=== PATIENT | female | born 1935 | race Caucasian/White ===

== ENCOUNTER 2017-02-22 11:18 | Emergency (ER) | payer OTHER ==
[~2017-02-22] VITALS: Ht 167.6 cm; Wt 69.2 kg
[~2017-02-22 11:18] MED LIST: ASPI325T PO; CETI10 PO; ELOC0.1O TOP; GABA600T PO; HYDR10 PO; LEVO100T4 PO; LISI-363 PO; LORTA5 PO; LOVA40TA PO; OMEP20TA39 PO
[2017-02-22 11:24] VITALS: BP 158/65; PULSE 50; RESP 20; TEMP 98.3; O2SAT 92
[2017-02-22] MEDS ORDERED: BOSW5TAB PO (11:52)
[2017-02-22] MEDS ORDERED: AMLO2.5T PO (11:53)
[2017-02-22] MEDS ORDERED: VITA200C3 PO (11:53)
[2017-02-22] MEDS ORDERED: ZINC220C3 PO (11:53)
[2017-02-22] MEDS ORDERED: MAGN500T2 PO (11:53)
[2017-02-22] MEDS ORDERED: OMEGCAP PO (11:53)
[2017-02-22] MEDS ORDERED: ASPI325T PO (11:53)
[2017-02-22] MEDS ORDERED: LEVO100T5 PO (11:53)
[2017-02-22] MEDS ORDERED: GABA600T PO (11:53)
[2017-02-22] MEDS ORDERED: LOVA40TA PO (11:53)
[2017-02-22] MEDS ORDERED: PROP20TA3 PO (11:53)
[2017-02-22] MEDS ORDERED: COQ150CA PO (11:53)
[2017-02-22] MEDS ORDERED: ENAL20TA PO (11:53)
[2017-02-22] MEDS ORDERED: CEPH-460 PO (12:11)
--- NOTE | 2017-02-22 12:12 | PD ---
HPI Chief Complaint: Skin Problem Time Seen by Provider: 11:40 Travel History International Travel<30 days: No Contact w/Intl Traveler<30days: No Traveled to known affect area: No History of Present Illness HPI 81-year-old female presents emergency department for evaluation right lower extremity wound. Patient reports the wound has a yellowish discoloration and tenderness 2 days. The injury occurred approximately 10 days ago when a 10 pound piece of wooden furniture fell onto the right leg causing a skin tear/ abrasion to the right anterior flores. Patient reports that she had mild tenderness and swelling of the lower extremity since. She reports the pain as mild, constant, no exacerbating or alleviating factors, severity 3 out of 10. She became concerned today because she was unable to remove a piece of gauze from the wound surface. She denies fever, chills, nausea, vomiting, chest pain , shortness breath, abdominal pain. PFSH Past Medical History Narrative Medical Significant for hypertension, dyslipidemia, hypothyroidism, adenocarcinoma of the spine in remission since 2004. Cancer: Yes (para spinal mass adenocarcinoma) Cardiovascular Problems: Yes Diabetes: No Endocrine: Yes Genitourinary: No Hepatitis: No Hiatal Hernia: No Hypertension: Yes Immune Disorder: No Medical other: Yes (low blood sugar at times) Musculoskeletal: Yes (arthritis neck and back problems right knee bakers cyst ) Neurologic: No Psychiatric: No Respiratory: Yes Thyroid Disease: Yes ?: Not Past Surgical History Abdominal Surgery: Yes (hernia) Body Medical Devices: low teeth implants Genitourinary Surgery: Yes (uterine cyst removed) Pacemaker: No Other Surgery: Yes Social History Alcohol Use: No Tobacco Use: Yes (1ppd) Substance Use: No Allergies-Medications (Allergen,Severity, Reaction): Coded Allergies: No Known Allergies (Unverified , 02/22/17) Reported Meds & Prescriptions Reported Meds & Active Scripts Active Keflex (Cephalexin) 500 Mg Cap 500 Mg PO Q6H Reported Gabapentin 600 Mg Tab 600 Mg PO DAILY Enalapril (Enalapril Maleate) 20 Mg Tab 20 Mg PO DAILY Propranolol (Propranolol HCl) 20 Mg Tab 20 Mg PO DAILY Lovastatin 40 Mg Tab 40 Mg PO DAILY Levothyroxine (Levothyroxine Sodium) 100 Mcg Tab 100 Mcg PO DAILY Amlodipine (Amlodipine Besylate) 2.5 Mg Tab 2.5 Mg PO DAILY Magnesium Oxide 500 Mg Tab 500 Mg PO DAILY Zinc Sulfate 220 Mg Cap 220 Mg PO DAILY Coq10 (Coenzyme Q10 (Ubidecarenone)) 50 Mg Cap 1 Cap PO DAILY Aspirin 325 Mg Tab 81 Mg PO DAILY [place]-3 Fish Oil/Vitamin (Fish Oil-Cholecalciferol) 1,000-1,000 Mg Cap 1 Cap PO DAILY Vitamin E 200 Unit Cap 200 Units PO DAILY Osteo Bi-Flex One A Day (Voybzdabg-Nivvfldzhfq-Lqwirxz) 1 Tab 1 Tab PO DAILY Review of Systems Except as stated in HPI: all other systems reviewed are Neg Physical Exam Narrative GENERAL: Work, well-appearing elderly female. SKIN: Focused skin assessment warm/dry. 3 x 2 cm wound right anterior flores. The wound has a yellowish colored gauze stuck to the service of the wound. When removed the wound has healthy granulation tissue with a small amount of purulent drainage. No induration, or surrounding cellulitis, or lymphangitis. HEAD: Atraumatic. Normocephalic. EYES: Pupils equal and round. No scleral icterus. No injection or drainage. ENT: No nasal bleeding or discharge. Mucous membranes pink and moist. NECK: Trachea midline. No JVD. CARDIOVASCULAR: Regular rate and rhythm. No murmur appreciated. RESPIRATORY: No accessory muscle use. Clear to auscultation. Breath sounds equal bilaterally. GASTROINTESTINAL: Abdomen soft, non-tender, nondistended. Hepatic and splenic margins not palpable. MUSCULOSKELETAL: No obvious deformities. No clubbing. No cyanosis. Right lower extremity: 3 x 2 cm wound right anterior flores. Mild edema of right ankle , no bony point tenderness. Negative Homans sign. 2+ distal pulses. NEUROLOGICAL: Awake and alert. No obvious cranial nerve deficits. Motor grossly within normal limits. Normal speech. PSYCHIATRIC: Appropriate mood and affect; insight and judgment normal. Data Data Last Documented VS Vital Signs Date Time Temp Pulse Resp B/P Pulse Ox O2 Delivery O2 Flow Rate FiO2 02/22/17 11:24 98.3 50 20 158/65 92 MDM Medical Decision Making Medical Screen Exam Complete: Yes Emergency Medical Condition: Yes Differential Diagnosis Wound infection, abrasion, contusion, peripheral edema Narrative Course 81-year-old female presents emergency department for evaluation of right lower extremity wound sustained 10 days ago. She reports the last 2 days areas become increasingly more painful and she has gauze stuck to the wound from her previous dressing change. She does report some mild right lower extremity swelling since the injury. She has no bony point tenderness. Negative Homans sign. The calf is nontender. She reports the swelling started after the injury occurred. She is ambulatory without difficulty. The gauze was removed from the wound to reveal a 3 x 2 cm abrasion with granulation tissue present and a small amount of purulent drainage there is no induration, surrounding cellulitis, lymphangitis. Patient will be treated for mild wound infection. Instructed to elevate the extremity. And follow-up with her primary care doctor. Diagnosis Primary Impression: Wound infection Additional Impression: Contusion Qualified Code: S80.11XA - Contusion of right lower leg, initial encounter Referrals: Primary Care Physician Additional Instructions: Keep area clean and dry. Change the dressing daily. Follow-up with her primary care doctor for recheck. Turned to the emergency department if he developed new or worsening symptoms such as fever, chills, increasing pain, increasing swelling of the lower extremity. Scripts Cephalexin (Keflex)500 Mg [id number] Mg PO Q6H #28 CAP Prov:Bia Guillory 02/22/17 Disposition: 01 DISCHARGE HOME Condition: Stable Bia Guillory Feb 22, 2017 12:12
== END 2017-02-22 12:24 | disposition home or self-care (01) ==
LOC: PHEFT 11:18
DX: S80.11XA Contusion of right lower leg, initial encounter (principal); W22.8XXA Striking against or struck by other objects, initial encounter; I10 Essential (primary) hypertension; E07.9 Disorder of thyroid, unspecified; E78.5 Hyperlipidemia, unspecified
CPT/HCPCS: 99283

== ENCOUNTER 2017-08-24 14:10 | Inpatient (IN) | payer OTHER, MEDICARE ==
[~2017-08-24] VITALS: Ht 152.4 cm; Wt 62.3 kg
[2017-08-24] VITALS (8 sets, daily range): BP systolic 96–160; BP diastolic 51–71; PULSE 47–55; RESP 18–20; TEMP 97.5–99.6; O2SAT 79–95
[~2017-08-24 14:10] MED LIST changes: +AMLO2.5T PO; +ASPI-183 PO; -ASPI325T PO; +BOSW5TAB PO; +CEPH-460 PO; -CETI10 PO; +COQ150CA PO; -ELOC0.1O TOP; +ENAL20TA PO; -HYDR10 PO; -LEVO100T4 PO; +LEVO100T5 PO; -LISI-363 PO; -LORTA5 PO; +MAGN500T2 PO; +OMEGCAP PO; -OMEP20TA39 PO; +PROP20TA3 PO; +VITA200C3 PO; +ZINC220C3 PO
[2017-08-24] MEDS ORDERED: SODIUM CHLORIDE 0.9% FLUSH 10 ML FLUSH IVF PRN (14:30)
--- NOTE | 2017-08-24 14:32 | PD ---
HPI Chief Complaint: Respiratory Symptoms Time Seen by Provider: 14:27 Travel History International Travel<30 days: No Contact w/Intl Traveler<30days: No Traveled to known affect area: No History of Present Illness HPI 82-year-old female patient with history of COPD, presents to the ER today because she states that she has not been feeling warm for several days, coughing with white phlegm, generally weak, and thinks she had a syncopal episode while in the bathroom yesterday, found herself on the ground. She also complains of left-sided chest pains which have been hurting since her fall yesterday. She denies any vomiting, diarrhea, or other symptoms. She had very slow heart rates and was given atropine by EMS. Modifying Factors: None Associated Signs & Symptoms: Syncopal episode, generally weak, coughing with white phlegm, slow heart rate Risk Factors: Elderly, COPD history PFSH Past Medical History Cancer: Yes (para spinal mass adenocarcinoma) Cardiovascular Problems: Yes Diabetes: No Diminished Hearing: No Endocrine: Yes Genitourinary: No Hepatitis: No Hiatal Hernia: No Hypertension: Yes Immune Disorder: No Medical other: Yes (low blood sugar at times) Musculoskeletal: Yes (arthritis neck and back problems right knee bakers cyst ) Neurologic: No Psychiatric: No Respiratory: Yes Thyroid Disease: Yes ?: Not Past Surgical History Abdominal Surgery: Yes (hernia) Body Medical Devices: low teeth implants Genitourinary Surgery: Yes (uterine cyst removed) Pacemaker: No Other Surgery: Yes Social History Alcohol Use: No Tobacco Use: Yes (1ppd: "quit yesterday"(08/23/17) Substance Use: No Allergies-Medications (Allergen,Severity, Reaction): Coded Allergies: No Known Allergies (Unverified Adverse Reaction, Unknown, 08/24/17) Reported Meds & Prescriptions Reported Meds & Active Scripts Active Reported Gabapentin 600 Mg Tab 600 Mg PO DAILY Enalapril (Enalapril Maleate) 20 Mg Tab 20 Mg PO DAILY Propranolol (Propranolol HCl) 20 Mg Tab 20 Mg PO DAILY Lovastatin 40 Mg Tab 40 Mg PO DAILY Levothyroxine (Levothyroxine Sodium) 100 Mcg Tab 100 Mcg PO DAILY Amlodipine (Amlodipine Besylate) 2.5 Mg Tab 2.5 Mg PO DAILY Magnesium Oxide 500 Mg Tab 500 Mg PO DAILY Zinc Sulfate 220 Mg Cap 220 Mg PO DAILY Coq10 (Coenzyme Q10 (Ubidecarenone)) 50 Mg Cap 1 Cap PO DAILY Aspirin 325 Mg Tab 81 Mg PO DAILY [place]-3 Fish Oil/Vitamin (Fish Oil-Cholecalciferol) 1,000-1,000 Mg Cap 1 Cap PO DAILY Vitamin E 200 Unit Cap 200 Units PO DAILY Osteo Bi-Flex One A Day (Wvwuvzbiq-Eiirjbunqht-Vqcyyam) 1 Tab 1 Tab PO DAILY Review of Systems Except as stated in HPI: all other systems reviewed are Neg Physical Exam Narrative GENERAL: Well-developed elderly white female patient currently in mild distress. Awake and oriented 3. SKIN: Focused skin assessment warm/dry. HEAD: Atraumatic. Normocephalic. EYES: Pupils equal and round. No scleral icterus. No injection or drainage. ENT: No nasal bleeding or discharge. Mucous membranes pink and moist. NECK: Trachea midline. Supple. CARDIOVASCULAR: Regular rate and rhythm. No murmur appreciated. RESPIRATORY: Mild accessory muscle use. Bibasilar rails. Breath sounds equal bilaterally. GASTROINTESTINAL: Abdomen soft, non-tender, nondistended. Hepatic and splenic margins not palpable. MUSCULOSKELETAL: No obvious deformities. No clubbing. No cyanosis. No edema. NEUROLOGICAL: Awake and alert. No obvious cranial nerve deficits. Motor grossly within normal limits. Normal speech. PSYCHIATRIC: Appropriate mood and affect; insight and judgment normal. Data Data Last Documented VS Vital Signs Date Time Temp Pulse Resp B/P (MAP) Pulse Ox O2 Delivery O2 Flow Rate FiO2 08/24/17 15:02 92 Nasal Cannula 2.50 08/24/17 14:18 44 20 08/24/17 14:14 98.7 110/55 (73) Orders Orders Electrocardiogram (08/24/17 14:27) Complete Blood Count With Diff (08/24/17 14:27) Comprehensive Metabolic Panel (08/24/17 14:27) Magnesium (Mg) (08/24/17 14:27) B-Type Natriuretic Peptide (08/24/17 14:27) Ckmb (Isoenzyme) Profile (08/24/17 14:27) Troponin I (08/24/17 14:27) Act Partial Throm Time (Ptt) (08/24/17 14:27) Prothrombin Time / Inr (Pt) (08/24/17 14:27) Chest, Single Ap (08/24/17 14:27) Ct Brain W/O Iv Contrast(Rout) (08/24/17 14:27) Ct Cerv Spine W/O Contrast (08/24/17 14:27) Ecg Monitoring (08/24/17 14:27) Iv Access Insert/Monitor (08/24/17 14:27) Oximetry (08/24/17 14:27) Sodium Chloride 0.9% Flush (Ns Flush) (08/24/17 14:30) CKMB (08/24/17 14:39) CKMB% (08/24/17 14:39) Furosemide Inj (Lasix Inj) (08/24/17 16:30) Admit Order (Ed Use Only) (08/24/17 16:35) Labs Laboratory Tests Test 08/24/17 14:39 White Blood Count 6.8 TH/MM3 Red Blood Count 3.87 MIL/MM3 Hemoglobin 12.6 GM/DL Hematocrit 37.5 % Mean Corpuscular Volume 96.8 FL Mean Corpuscular Hemoglobin 32.4 PG Mean Corpuscular Hemoglobin Concent 33.5 % Red Cell Distribution Width 12.9 % Platelet Count 107 TH/MM3 Mean Platelet Volume 8.7 FL Neutrophils (%) (Auto) 69.5 % Lymphocytes (%) (Auto) 12.5 % Monocytes (%) (Auto) 14.8 % Eosinophils (%) (Auto) 0.5 % Basophils (%) (Auto) 2.7 % Neutrophils # (Auto) 4.7 TH/MM3 Lymphocytes # (Auto) 0.9 TH/MM3 Monocytes # (Auto) 1.0 TH/MM3 Eosinophils # (Auto) 0.0 TH/MM3 Basophils # (Auto) 0.2 TH/MM3 CBC Comment DIFF FINAL Differential Comment Prothrombin Time 11.1 SEC Prothromb Time International Ratio 1.1 RATIO Activated Partial Thromboplast Time 24.0 SEC Blood Urea Nitrogen 34 MG/DL Creatinine 0.90 MG/DL Random Glucose 117 MG/DL Total Protein 6.5 GM/DL Albumin 3.2 GM/DL Calcium Level 8.0 MG/DL Magnesium Level 2.3 MG/DL Alkaline Phosphatase 58 U/L Aspartate Amino Transf (AST/SGOT) 59 U/L Alanine Aminotransferase (ALT/SGPT) 39 U/L Total Bilirubin 0.4 MG/DL Sodium Level 138 MEQ/L Potassium Level 4.9 MEQ/L Chloride Level 99 MEQ/L Carbon Dioxide Level 30.6 MEQ/L Anion Gap 4 MEQ/L Estimat Glomerular Filtration Rate 60 ML/MIN Total Creatine Kinase 249 U/L Creatine Kinase MB 1.1 NG/ML Creatine Kinase MB % 0.4 % Troponin I 0.02 NG/ML B-Type Natriuretic Peptide 659 PG/ML MDM Medical Decision Making Medical Screen Exam Complete: Yes Emergency Medical Condition: Yes Medical Record Reviewed: Yes Interpretation(s) EKG shows sinus bradycardia at a rate of 48 bpm with occasional APC. No signs of acute ST-T changes. Laboratory Tests Test 08/24/17 14:39 Red Blood Count 3.87 MIL/MM3 (4.00-5.30) Platelet Count 107 TH/MM3 (150-450) Monocytes (%) (Auto) 14.8 % (0.0-8.0) Basophils (%) (Auto) 2.7 % (0.0-2.0) Lymphocytes # (Auto) 0.9 TH/MM3 (1.0-4.8) Monocytes # (Auto) 1.0 TH/MM3 (0-0.9) Activated Partial Thromboplast Time 24.0 SEC (24.3-30.1) Blood Urea Nitrogen 34 MG/DL (7-18) Random Glucose 117 MG/DL (74-106) Albumin 3.2 GM/DL (3.4-5.0) Calcium Level 8.0 MG/DL (8.5-10.1) Aspartate Amino Transf (AST/SGOT) 59 U/L (15-37) Anion Gap 4 MEQ/L (5-15) Estimat Glomerular Filtration Rate 60 ML/MIN (>89) Total Creatine Kinase 249 U/L (26-192) B-Type Natriuretic Peptide 659 PG/ML (0-100) Last [address] [id number]/24/[id number] Signed Impressions: Service Date/Time: Thursday, August 24, 2017 14:58 - CONCLUSION: Normal examination. Jesus Oro MD Chest X-Ray [id number] Signed Impressions: Service Date/Time: Thursday, August 24, 2017 14:36 - CONCLUSION: Increased interstitial markings bilaterally suggestive of pulmonary edema. Brandin Hartman MD Cervical Spine CT [id number] Signed Impressions: Service Date/Time: Thursday, August 24, 2017 14:58 - CONCLUSION: 1. Advanced multilevel degenerative spondylosis with loss of cervical lordosis and mild anterolisthesis of C3 on C4 and C4 and C5. There is also widening of the anterior disc space at C2-5. Suspect findings are degenerative in etiology. Consider flexion-extension views if there is concern regarding ligamentous instability. 2. No acute fracture. Camden Mackay MD Differential Diagnosis Shortness of breath, coughing, general weakness, syncope: Dysrhythmias versus pneumonia versus CHF versus COPD exacerbation versus dehydration versus metabolic issues Narrative Course CAT scan of the brain did not show any signs of acute injuries. Chest x-ray and exam is indicative of underlying CHF. Lab work was otherwise unremarkable and cardiac enzymes are negative. EKG shows significant bradycardia which could be causing her symptoms as well. Patient was given Lasix and at this point my plan would be to admit the patient for further treatment. Case was discussed with Dr. Lehman for admission. Patient was initially hypoxic on evaluation but is running in the low 90s on 2 L of oxygen. Diagnosis Primary Impression: Syncope Additional Impressions: CHF (congestive heart failure) Symptomatic bradycardia Admitting Information Admitting Physician Requests: Admit Astrid Zaidi MD Aug 24, 2017 14:32
[2017-08-24 14:47] LABS: AUTOMATED NEUTROPHIL # 4.7 TH/MM3 (1.8-7.7); BASOPHIL # 0.2 TH/MM3 (0-0.2); BASOPHIL % 2.7 % (0.0-2.0); EOSINOPHIL % 0.5 % (0.0-4.0); HEMATOCRIT 37.5 % (35.0-46.0); HEMOGLOBIN 12.6 GM/DL (11.6-15.3); LYMPH % 12.5 % (9.0-44.0); LYMPHOCYTE # 0.9 TH/MM3 (1.0-4.8); MEAN CELL VOLUME 96.8 FL (80.0-100.0); MEAN CORPUSCULAR HEMOGLOBIN 32.4 PG (27.0-34.0); MEAN CORPUSCULAR HGB CONC 33.5 % (32.0-36.0); MEAN PLATELET VOLUME 8.7 FL (7.0-11.0); MONO % 14.8 % (0.0-8.0); NEUT % 69.5 % (16.0-70.0); PLATELET COUNT 107 TH/MM3 (150-450); RED BLOOD COUNT 3.87 MIL/MM3 (4.00-5.30); RED CELL DISTRIBUTION WIDTH 12.9 % (11.6-17.2); WHITE BLOOD COUNT 6.8 TH/MM3 (4.0-11.0)
[2017-08-24 14:59] LABS: INTERNATIONAL NORMALIZED RATIO 1.1 RATIO; PROTHROMBIN TIME - PATIENT 11.1 SEC (9.8-11.6)
[2017-08-24 15:01] LABS: BLOOD UREA NITROGEN 34 MG/DL (7-18); GLOMERULAR FILTRATION RATE 60 ML/MIN (>89); GLUCOSE,RANDOM 117 MG/DL (74-106); SODIUM (NA) 138 MEQ/L (136-145)
[2017-08-24 15:02] LABS: CHLORIDE 99 MEQ/L (98-107)
--- NOTE | 2017-08-24 15:37 | RADRPT ---
EXAM DATE/TIME: 08/24/2017 14:58 [facility] COMPARISON: No previous studies available for comparison. INDICATIONS : Patient had a syncopal episode yesterday, and found herself on the ground. Generalized weakness. RADIATION DOSE: 61.50 CTDIvol (mGy) MEDICAL HISTORY : Hypertension. Chronic obstructive pulmonary disease. Paraspinal adenocarcinoma. SURGICAL HISTORY : None. ENCOUNTER: Initial ACUITY: 2 days PAIN SCALE: 5/10 LOCATION: cranial TECHNIQUE: Multiple contiguous axial images were obtained of the head. Using automated exposure control and adj ustment of the mA and/or kV according to patient size, radiation dose was kept as low as reasonably a chievable to obtain optimal diagnostic quality images. DICOM format image data is available electro nically for review and comparison. FINDINGS: CEREBRUM: The ventricles are normal for age. No evidence of midline shift, mass lesion, hemorrhage or acute in farction. No extra-axial fluid collections are seen. POSTERIOR FOSSA: The cerebellum and brainstem are intact. The 4th ventricle is midline. The cerebellopontine angle i s unremarkable. EXTRACRANIAL: The visualized portion of the orbits is intact. SKULL: The calvaria is intact. No evidence of skull fracture. CONCLUSION: Normal examination. Jesus Oro MD on August 24, 2017 at 15:33 Board Certified Radiologist. This report was verified electronically.
[2017-08-24 15:39] LABS: BICARBONATE 30.6 MEQ/L (21.0-32.0); MAGNESIUM 2.3 MG/DL (1.5-2.5)
[2017-08-24 15:40] LABS: ALBUMIN 3.2 GM/DL (3.4-5.0)
[2017-08-24 15:42] LABS: AST (GOT) 59 U/L (15-37)
[2017-08-24 15:43] LABS: ALT (GPT) 39 U/L (10-53)
[2017-08-24 15:44] LABS: TOTAL BILIRUBIN ADULT 0.4 MG/DL (0.2-1.0); TOTAL PROTEIN 6.5 GM/DL (6.4-8.2)
[2017-08-24 15:45] LABS: ALKALINE PHOSPHATASE 58 U/L (45-117)
[2017-08-24 15:48] LABS: TROPONIN I 0.02 NG/ML (0.02-0.05)
--- NOTE | 2017-08-24 16:06 | RADRPT ---
EXAM DATE/TIME: 08/24/2017 14:36 [facility] COMPARISON: No previous studies available for comparison. INDICATIONS : Shortness of breath. MEDICAL HISTORY : None. SURGICAL HISTORY : None. ENCOUNTER: Initial ACUITY: 2 days PAIN SCORE: 2/10 LOCATION: chest FINDINGS: A single view of the chest demonstrates the lungs to be symmetrically aerated without evidence of mas s, infiltrate or effusion. There are increased interstitial markings bilaterally. The cardiomediastin al contours are unremarkable. Osseous structures are intact. CONCLUSION: Increased interstitial markings bilaterally suggestive of pulmonary edema. Brandin Hartman MD on August 24, 2017 at 16:04 Board Certified Radiologist. This report was verified electronically.
--- NOTE | 2017-08-24 16:17 | RADRPT ---
EXAM DATE/TIME: 08/24/2017 14:58 [facility] COMPARISON: No previous studies available for comparison. INDICATIONS : Patient had a syncopal episode yesterday, and found herself on the ground. Generalized weakness. RADIATION DOSE: 26.41 CTDIvol (mGy) MEDICAL HISTORY : Hypertension. Chronic obstructive pulmonary disease. Paraspinal adenocarcinoma. SURGICAL HISTORY : None. ENCOUNTER: Initial ACUITY: 2 days PAIN SCALE: 5/10 LOCATION: neck TECHNIQUE: Volumetric scanning of the cervical spine was performed. Multiplanar reconstructions in the sagittal, coronal and oblique axial planes were performed. Using automated exposure control and adjustment o f the mA and/or kV according to patient size, radiation dose was kept as low as reasonably achievable to obtain optimal diagnostic quality images. DICOM format image data is available electronically f or review and comparison. FINDINGS: Vertebral body heights are maintained. Osseous structures are intact without evidence for acute bony fracture. Dens is intact. Loss of cervical lordosis with mild, less than 2 mm anterolisthesis of C3 o n C4 and C4 on C5. There is also widening of the anterior disc space at C2-3, C3-4 and C4-5. There is a normal C1-2 relationship. Facets are normally aligned. There is no significant prevertebral soft t issue hematoma. Advanced multilevel degenerative spondylosis of the cervical spine. Multilevel facet arthropathy. No significant cervical adenopathy or gross mass. The thyroid appears unremarkable. Visu alized lung apices are clear without pneumothorax. Prominent left internal carotid artery calcified p laque. CONCLUSION: 1. Advanced multilevel degenerative spondylosis with loss of cervical lordosis and mild anterolisthes is of C3 on C4 and C4 and C5. There is also widening of the anterior disc space at C2-5. Suspect find ings are degenerative in etiology. Consider flexion-extension views if there is concern regarding lig amentous instability. 2. No acute fracture. Camden Mackay MD on August 24, 2017 at 16:12 Board Certified Radiologist. This report was verified electronically.
[2017-08-24] MEDS ORDERED: FUROSEMIDE 40 MG/4 ML VIAL IV PUSH ONE (16:30)
[2017-08-24] MEDS ORDERED: BISACODYL 10 MG SUPP RECTAL PRN (16:45)
[2017-08-24] MEDS ORDERED: SENNOSIDES 8.6 MG TAB PO PRN (16:45)
[2017-08-24] MEDS ORDERED: NALOXONE HCL 0.4 MG/ML AMP IV PUSH PRN (16:45)
[2017-08-24] MEDS ORDERED: ONDANSETRON HCL 4 MG/2 ML VIAL IVP PRN (16:45)
[2017-08-24] MEDS ORDERED: MAGNESIUM HYDROXIDE SUSP 30 ML CUP PO PRN (16:45)
[2017-08-24] MEDS ORDERED: LACTULOSE SYRUP 20 GM/30 ML CUP PO PRN (16:45)
[2017-08-24] MEDS ORDERED: SODIUM CHLORIDE 0.9% FLUSH 10 ML FLUSH IV FLUSH PRN (16:45)
[2017-08-24] MEDS ORDERED: ACETAMINOPHEN 325 MG TAB PO PRN (16:45)
[2017-08-24] MEDS ORDERED: PILL SPLITTER OTHER PRN (17:30)
--- NOTE | 2017-08-24 17:35 | HHI.HP ---
[facility] Mike Luis MD Admission Diagnosis Symptomatic bradycardia/CHF Diagnoses: (1) Acute exacerbation of CHF (congestive heart failure) Diagnosis: Principal (2) Syncope Diagnosis: Principal Chief Complaint: Syncope Generalized weakness Travel History International Travel<30 Days: No Contact w/Intl Traveler <30 Da: No Traveled to Known Affected Are: No History of Present Illness Written by Jeannine Mirza, acting as scribe for Dr. Huitron on 08/24/17 at 17:27. Ms. Villalobos is an 82-year-old female patient with a known medical history of hypertension, COPD, hypothyroidism, and arthritis who presented to the ED with complaints of generalized weakness, productive cough and a possible syncopal episode. She states she fell in the shower [place] and felt lightheaded prior , loosing her balance. Does admit to hitting her head. States she blacked out for a couple seconds. Does also complain of shortness of breath and some congestion along with productive cough with white/yellow sputum. Admits to subjective fevers and chills and epigastric pain. Denies any associated nausea, vomiting or diaphoresis. PCP is Dr. Luis. Does not follow with a warehouse inventory clerk. States she has poor circulation and bilateral lower extremity edema with plans to see Dr. Wally lindsey [facility], vascular surgeon, later this month. Denies ever having a diagnosis of CHF in the past. At the time of assessment patient is awake and alert and oriented. Denies any chest pain at this time. Breathing comfortably on 2 L NC. Review of Systems Constitutional: COMPLAINS OF: Fever, Chills Eyes: DENIES: Blurred vision, Diplopia Respiratory: COMPLAINS OF: Cough, Sputum production, Shortness of breath Cardiovascular: COMPLAINS OF: Chest pain, DENIES: Palpitations Gastrointestinal: DENIES: Abdominal pain, Bloody stools, Constipation, Diarrhea , Nausea, Vomiting Psychiatric: COMPLAINS OF: Anxiety Except as stated in HPI: all other systems reviewed are Neg Past Family Social History Past Medical History History of para spinal mass adenocarcinoma. Hypertension Arthritis Right knee Siu's cyst COPD Past Surgical History Hernia repair Bottom teeth implants Uterine cyst removal Right knee surgery Cholecystectomy Reported Medications Active Reported Gabapentin 600 Mg Tab 600 Mg PO DAILY Enalapril (Enalapril Maleate) 20 Mg Tab 20 Mg PO DAILY Propranolol (Propranolol HCl) 20 Mg Tab 20 Mg PO DAILY Lovastatin 40 Mg Tab 40 Mg PO DAILY Levothyroxine (Levothyroxine Sodium) 100 Mcg Tab 100 Mcg PO DAILY Amlodipine (Amlodipine Besylate) 2.5 Mg Tab 2.5 Mg PO DAILY Magnesium Oxide 500 Mg Tab 500 Mg PO DAILY Zinc Sulfate 220 Mg Cap 220 Mg PO DAILY Coq10 (Coenzyme Q10 (Ubidecarenone)) 50 Mg Cap 1 Cap PO DAILY Aspirin 325 Mg Tab 81 Mg PO DAILY Orange-3 Fish Oil/Vitamin (Fish Oil-Cholecalciferol) 1,000-1,000 Mg Cap 1 Cap PO DAILY Vitamin E 200 Unit Cap 200 Units PO DAILY Osteo Bi-Flex One A Day (Mnajvdeub-Bylghvbiuvh-Eyxgyub) 1 Tab 1 Tab PO DAILY Allergies: Coded Allergies: No Known Allergies (Unverified Allergy, Unknown, 08/24/17) Active Ordered Medications Current Medications Medications (Trade) Dose Ordered Sig/Lisandra Route Start Time Stop Time Status Last Admin (NS Flush) 2 ml UNSCH PRN IV FLUSH 08/24/17 16:45 (NS Flush) 2 ml BID IV FLUSH 08/24/17 21:00 (Tylenol) 650 mg Q4H PRN PO 08/24/17 16:45 (Zofran Inj) 4 mg Q6H PRN IVP 08/24/17 16:45 (Lovenox Inj) 40 mg Q24H SQ 08/24/17 18:00 (Narcan Inj) 0.4 mg UNSCH PRN IV PUSH 08/24/17 16:45 (Lisa-Colace) 1 tab BID PO 08/24/17 21:00 (Milk Of Magnesia Liq) 30 ml Q12H PRN PO 08/24/17 16:45 (Senokot) 17.2 mg Q12H PRN PO 08/24/17 16:45 (Dulcolax Supp) 10 mg DAILY PRN RECTAL 08/24/17 16:45 (Lactulose Liq) 30 ml DAILY PRN PO 08/24/17 16:45 (Lasix Inj) 40 mg BID@09,18 IV PUSH 08/24/17 18:00 (Norvasc) 2.5 mg DAILY PO 08/25/17 09:00 UNV (Aspirin) 81 mg DAILY PO 08/25/17 09:00 UNV (Vasotec) 20 mg DAILY PO 08/25/17 09:00 UNV (Neurontin) 600 mg DAILY PO 08/25/17 09:00 UNV (Synthroid) 100 mcg DAILY PO 08/25/17 09:00 UNV (Pravachol) 40 mg DAILY PO 08/25/17 09:00 UNV Non-Formulary Medication 500 mg DAILY PO 08/25/17 09:00 UNV Non-Formulary Medication 200 units DAILY PO 08/25/17 09:00 UNV Family History Denies any significant medical history. Social History States she quit smoking yesterday, has smoked 3/4 of pack cigarettes starting at the age of 39. Denies any alcohol use. Denies any illicit drug use. Physical Exam Vital Signs Vital Signs Date Time Temp Pulse Resp B/P (MAP) Pulse Ox O2 Delivery O2 Flow Rate FiO2 08/24/17 17:14 08/24/17 16:50 54 20 96/51 (66) 95 Nasal Cannula 2.50 08/24/17 15:02 92 Nasal Cannula 2.50 08/24/17 14:18 44 20 92 Nasal Cannula 2.50 08/24/17 14:17 20 92 Nasal Cannula 2.50 08/24/17 14:14 98.7 47 20 110/55 (73) 79 Physical Exam GENERAL: This is a well-nourished, well-developed patient, in no apparent distress. SKIN: No rashes, ecchymoses or lesions. Warm and dry. HEAD: Atraumatic. Normocephalic. EYES: Pupils equal round and reactive. Extraocular motions intact. No scleral icterus. No injection or drainage. ENT: Nose without bleeding, purulent drainage or septal hematoma. Airway patent. NECK: Trachea midline. No JVD or lymphadenopathy. Supple. CARDIOVASCULAR: Sinus bradycardia. Without murmurs, gallops, or rubs. RESPIRATORY: Diminished breath sounds throughout. Breath sounds equal bilaterally. No wheezes, rales, or rhonchi. GASTROINTESTINAL: Abdomen soft, non-tender, nondistended. No guarding. MUSCULOSKELETAL: Extremities without clubbing, cyanosis.. No joint tenderness, effusion, or edema noted. Bilateral lower extremity edema, trace. NEUROLOGICAL: Awake and alert. Cranial nerves II through XII intact. Motor and sensory grossly within normal limits. Five out of 5 muscle strength in all muscle groups. Normal speech. Laboratory Laboratory Tests Test 08/24/17 14:39 White Blood Count 6.8 Red Blood Count 3.87 Hemoglobin 12.6 Hematocrit 37.5 Mean Corpuscular Volume 96.8 Mean Corpuscular Hemoglobin 32.4 Mean Corpuscular Hemoglobin Concent 33.5 Red Cell Distribution Width 12.9 Platelet Count 107 Mean Platelet Volume 8.7 Neutrophils (%) (Auto) 69.5 Lymphocytes (%) (Auto) 12.5 Monocytes (%) (Auto) 14.8 Eosinophils (%) (Auto) 0.5 Basophils (%) (Auto) 2.7 Neutrophils # (Auto) 4.7 Lymphocytes # (Auto) 0.9 Monocytes # (Auto) 1.0 Eosinophils # (Auto) 0.0 Basophils # (Auto) 0.2 CBC Comment DIFF FINAL Differential Comment Prothrombin Time 11.1 Prothromb Time International Ratio 1.1 Activated Partial Thromboplast Time 24.0 Blood Urea Nitrogen 34 Creatinine 0.90 Random Glucose 117 Total Protein 6.5 Albumin 3.2 Calcium Level 8.0 Magnesium Level 2.3 Alkaline Phosphatase 58 Aspartate Amino Transf (AST/SGOT) 59 Alanine Aminotransferase (ALT/SGPT) 39 Total Bilirubin 0.4 Sodium Level 138 Potassium Level 4.9 Chloride Level 99 Carbon Dioxide Level 30.6 Anion Gap 4 Estimat Glomerular Filtration Rate 60 Total Creatine Kinase 249 Creatine Kinase MB 1.1 Creatine Kinase MB % 0.4 Troponin I 0.02 B-Type Natriuretic Peptide 659 Result Diagram: 08/24/17143808/24/171438 Imaging Last Impressions Head CT 08/24/171426 Signed Impressions: Service Date/Time: Thursday, August 24, 2017 14:58 - CONCLUSION: Normal examination. Jesus Oro MD Chest X-Ray 08/24/171426 Signed Impressions: Service Date/Time: Thursday, August 24, 2017 14:36 - CONCLUSION: Increased interstitial markings bilaterally suggestive of pulmonary edema. Brandin Hartman MD Cervical Spine CT 08/24/171426 Signed Impressions: Service Date/Time: Thursday, August 24, 2017 14:58 - CONCLUSION: 1. Advanced multilevel degenerative spondylosis with loss of cervical lordosis and mild anterolisthesis of C3 on C4 and C4 and C5. There is also widening of the anterior disc space at C2-5. Suspect findings are degenerative in etiology. Consider flexion-extension views if there is concern regarding ligamentous instability. 2. No acute fracture. Camden Mackay MD Septic Shock Reassessment Septic shock perfusion: reassessment completed Caprini VTE Risk Assessment Caprini VTE Risk Assessment: Mod/High Risk (score >= 2) Caprini Risk Assessment Model Point Value = 1 Point Value = 2 Point Value = 3 Point Value = 5 Age 41-60 Minor surgery BMI > 25 kg/m2 Swollen legs Varicose veins or History of unexplained or recurrent spontaneous Oral contraceptives or hormone replacement Sepsis (< 1 month) Serious lung disease, including pneumonia (< 1 month) Abnormal pulmonary function Acute myocardial infarction Congestive heart failure (< 1 month) History of inflammatory bowel disease Medical patient at bed rest Age 61-74 Arthroscopic surgery Major open surgery (> 45 min) Laparoscopic surgery (> 45 min) Malignancy Confined to bed (> 72 hours) Immobilizing plaster cast Central venous access Age >= 75 History of VTE Family history of VTE Factor V Leiden Prothrombin [id number] Lupus anticoagulant Anticardiolipin antibodies Elevated serum homocysteine Heparin-induced thrombocytopenia Other congenital or acquired thrombophilia Stroke (< 1 month) Elective arthroplasty Hip, pelvis, or leg fracture Acute spinal cord injury (< 1 month) Prophylaxis Regimen Total Risk Factor Score Risk Level Prophylaxis Regimen 0-1 Low Early ambulation 2 Moderate Order ONE of the following: *Sequential Compression Device (SCD) *Heparin 5000 units SQ BID 3-4 Higher Order ONE of the following medications: *Heparin 5000 units SQ TID *Enoxaparin/Lovenox 40 mg SQ daily (WT < 150 kg, CrCl > 30 mL/min) *Enoxaparin/Lovenox 30 mg SQ daily (WT < 150 kg, CrCl > 10-29 mL/min) *Enoxaparin/Lovenox 30 mg SQ BID (WT < 150 kg, CrCl > 30 mL/min) AND/OR *Sequential Compression Device (SCD) 5 or more Highest Order ONE of the following medications: *Heparin 5000 units SQ TID (Preferred with Epidurals) *Enoxaparin/Lovenox 40 mg SQ daily (WT < 150 kg, CrCl > 30 mL/min) *Enoxaparin/Lovenox 30 mg SQ daily (WT < 150 kg, CrCl > 10-29 mL/min) *Enoxaparin/Lovenox 30 mg SQ BID (WT < 150 kg, CrCl > 30 mL/min) AND *Sequential Compression Device (SCD) Assessment and Plan Assessment and Plan This is an 82-year-old female patient with a known medical history of COPD, hypertension, hyperlipidemia and hypothyroidism who presented to the ED status post syncopal episode, generalized weakness, and cough. Symptomatic bradycardia with generalized weakness, fatigue, and post syncopal episode suspect secondary to beta ronni/bradycardia CT head reviewed showing normal examination. Cervical spine CT reviewed showing multilevel degenerative spondylosis. No acute fracture. EKG showing sinus bradycardia. No ST changes to indicate acute ischemia. Continue cardiac telemetry, monitor for arrhythmias. Will ask PT to evaluate and treat. Follow. Will obtain carotid ultrasounds. Follow. Acute exacerbation of CHF, first episode Patient denies any prior diagnosis of heart failure. CXR reviewed showing increased interstitial markings bilaterally suggestive of pulmonary edema. BNP 659 on presentation. Lasix 40 mg IV given in ED. Placed on Lasix 40 mg IV BID. Strict monitoring of intake and output. Will obtain a 2-D ECHO. Follow. Fluid restriction, 1500 ml per day. Supplemental O2 to keep O2 sats >92%. Hypothyroidism: Check TSH. Follow levothyroxine. Hyperlipidemia, chronic: Continue home statin. DVT Prophylaxis: SCDs. Lovenox. This note was transcribed by [employer]OW Boss . I, Dr. Tia Huitron personally performed the history, physical exam, and medical decision making; and confirmed the accuracy of the information in the transcribed note. Authenticated by Dr. Tia Huitron on 08/24/17 at 17:27. Physician Certification 2 Midnight Certification Type: Admission for Inpatient Services Order for Inpatient Services The services are ordered in accordance with Medicare regulations or non- Medicare payer requirements, as applicable. In the case of services not specified as inpatient-only, they are appropriately provided as inpatient services in accordance with the 2-midnight benchmark. Estimated LOS (days): 2 2 days is the estimated time the patient will need to remain in the hospital, assuming treatment plan goals are met and no additional complications. Post-Hospital Plan: Not yet determined Jeannine Mirza Aug 24, 2017 17:35 Tia Huitron MD Aug 24, 2017 18:41
[2017-08-24] MEDS: FUROSEMIDE 40 MG/4 ML VIAL IV PUSH SCH (18:42)
[2017-08-24] MEDS: ENOXAPARIN SODIUM 40 MG/0.4 ML SYRINGE SQ SCH (18:42)
[2017-08-24] MEDS: DOCUSATE SODIUM 50 MG/SENNA 8.6 MG TAB PO SCH (20:13)
[2017-08-24] MEDS: SODIUM CHLORIDE 0.9% FLUSH 10 ML FLUSH IV FLUSH SCH (20:13)
[2017-08-24] MEDS: RESP: ALBUTEROL 2.5 MG/IPRATROPIUM 0.5 MG NEB (PRN) NEB (21:20)
[2017-08-24] MEDS: BENZONATATE 100 MG CAP PO PRN (23:51)
[2017-08-25] VITALS (7 sets, daily range): BP systolic 125–177; BP diastolic 62–88; PULSE 50–80; RESP 18; TEMP 97.9–98.8; O2SAT 89–99
[2017-08-25 06:07] LABS: AUTOMATED NEUTROPHIL # 3.8 TH/MM3 (1.8-7.7); BASOPHIL % 0.1 % (0.0-2.0); EOSINOPHIL % 0.2 % (0.0-4.0); HEMOGLOBIN 11.9 GM/DL (11.6-15.3); LYMPH % 15.9 % (9.0-44.0); LYMPHOCYTE # 0.9 TH/MM3 (1.0-4.8); MEAN CELL VOLUME 97.6 FL (80.0-100.0); MEAN CORPUSCULAR HEMOGLOBIN 31.5 PG (27.0-34.0); MEAN CORPUSCULAR HGB CONC 32.3 % (32.0-36.0); MEAN PLATELET VOLUME 9.6 FL (7.0-11.0); MONO % 13.7 % (0.0-8.0); MONOCYTE # 0.7 TH/MM3 (0-0.9); NEUT % 70.1 % (16.0-70.0); PLATELET COUNT 76 TH/MM3 (150-450); RED BLOOD COUNT 3.79 MIL/MM3 (4.00-5.30); RED CELL DISTRIBUTION WIDTH 12.9 % (11.6-17.2); WHITE BLOOD COUNT 5.4 TH/MM3 (4.0-11.0)
[2017-08-25] MEDS: LEVOTHYROXINE SODIUM 100 MCG TAB PO SCH (06:15)
[2017-08-25] MEDS: ENALAPRIL MALEATE 10 MG TAB PO SCH ×2 (06:16→10:57)
[2017-08-25 06:26] LABS: CALCIUM 8.4 MG/DL (8.5-10.1)
[2017-08-25 06:27] LABS: BICARBONATE 34.3 MEQ/L (21.0-32.0)
[2017-08-25 06:30] LABS: CREATININE 0.92 MG/DL (0.50-1.00)
[2017-08-25] MEDS: RESP: ALBUTEROL 2.5 MG/IPRATROPIUM 0.5 MG NEB (PRN) NEB ×2 (06:32→19:40)
[2017-08-25] MEDS ORDERED: ENALAPRIL MALEATE 10 MG TAB PO SCH ×2 (09:00)
[2017-08-25] MEDS ORDERED: amLODIPine BESYLATE 5 MG TAB PO SCH (09:00)
--- NOTE | 2017-08-25 09:09 | HHI.PR ---
Subjective Remarks Feels weak so shortness of breath however improved since yesterday. Able to sit in the chair seen by physical therapy recommends rehabilitation. No chest pain, palpitations, lightheadedness. Lower extremity edema improved. Eating fairly well nausea vomiting diarrhea or constipation. Objective Vitals Vital Signs Date Time Temp Pulse Resp B/P (MAP) Pulse Ox O2 Delivery O2 Flow Rate FiO2 08/25/17 04:00 97.9 57 18 177/78 (111) 92 08/25/17 00:00 97.9 50 18 136/62 (86) 90 08/24/17 20:00 97.5 50 18 160/69 (99) 91 08/24/17 20:00 55 08/24/17 19:22 94 Nasal Cannula 2.50 08/24/17 17:50 99.6 47 20 156/71 (99) 90 08/24/17 17:14 08/24/17 16:50 54 20 96/51 (66) 95 Nasal Cannula 2.50 08/24/17 16:40 95 Nasal Cannula 2.50 08/24/17 15:02 92 Nasal Cannula 2.50 08/24/17 14:18 44 20 92 Nasal Cannula 2.50 08/24/17 14:17 20 92 Nasal Cannula 2.50 08/24/17 14:14 98.7 47 20 110/55 (73) 79 I/O 08/24/17 08/24/17 08/24/17 08/25/17 08/25/17 08/25/17 07:00 15:00 23:00 07:00 15:00 23:00 Intake Total 240 ml Output Total 1000 ml Balance -760 ml Intake Oral 240 ml Output Urine Total 1000 ml # Voids 2 3 Result Diagram: 08/25/1750908/25/17509 Imaging Last Impressions Head CT 08/24/171426 Signed Impressions: Service Date/Time: Thursday, August 24, 2017 14:58 - CONCLUSION: Normal examination. Jesus Oro MD Chest X-Ray 08/24/171426 Signed Impressions: Service Date/Time: Thursday, August 24, 2017 14:36 - CONCLUSION: Increased interstitial markings bilaterally suggestive of pulmonary edema. Brandin Hartman MD Cervical Spine CT 08/24/171426 Signed Impressions: Service Date/Time: Thursday, August 24, 2017 14:58 - CONCLUSION: 1. Advanced multilevel degenerative spondylosis with loss of cervical lordosis and mild anterolisthesis of C3 on C4 and C4 and C5. There is also widening of the anterior disc space at C2-5. Suspect findings are degenerative in etiology. Consider flexion-extension views if there is concern regarding ligamentous instability. 2. No acute fracture. Camden Mackay MD Objective Remarks GENERAL: This is a well-nourished, well-developed patient, in no apparent distress. CARDIOVASCULAR: Sinus bradycardia. Without murmurs, gallops, or rubs. RESPIRATORY: Diminished breath sounds throughout. Breath sounds equal bilaterally. No wheezes, rales, or rhonchi. GASTROINTESTINAL: Abdomen soft, non-tender, nondistended. No guarding. MUSCULOSKELETAL: Extremities without clubbing, cyanosis.. No joint tenderness, effusion, or edema noted. Bilateral lower extremity edema, trace. NEUROLOGICAL: Awake and alert. Cranial nerves II through XII intact. Motor and sensory grossly within normal limits. Five out of 5 muscle strength in all muscle groups. Normal speech. A/P Problem List: (1) Acute exacerbation of CHF (congestive heart failure) ICD Code: I50.9 - Heart failure, unspecified (2) Syncope ICD Code: R55 - Syncope and collapse Status: Acute Assessment and Plan This is an 82-year-old female patient with a known medical history of COPD, hypertension, hyperlipidemia and hypothyroidism who presented to the ED status post syncopal episode, generalized weakness, and cough. Symptomatic bradycardia with generalized weakness, fatigue, and post syncopal episode suspect secondary to beta ronni/bradycardia CT head reviewed showing normal examination. Cervical spine CT reviewed showing multilevel degenerative spondylosis. No acute fracture. EKG showing sinus bradycardia. No ST changes to indicate acute ischemia. Continue cardiac telemetry, monitor for arrhythmias. PT to evaluate and treat. Recommends rehab, patient prefers however PT at home Carotid ultrasound reviewed no significant obstruction. Acute exacerbation of CHF, first episode Patient denies any prior diagnosis of heart failure. CXR reviewed showing increased interstitial markings bilaterally suggestive of pulmonary edema. BNP 659 on presentation. Lasix 40 mg IV given in ED. Placed on Lasix 40 mg IV BID. Strict monitoring of intake and output. 2-D ECHO pending Fluid restriction, 1500 ml per day. Supplemental O2 to keep O2 sats >92%. Hypothyroidism: Check TSH. Follow levothyroxine. Hyperlipidemia, chronic: Continue home statin. DVT Prophylaxis: SCDs. Lovenox. DC when improved poss tomorrow Tia Huitron MD Aug 25, 2017 09:09
--- NOTE | 2017-08-25 09:39 | RADRPT ---
EXAM DATE/TIME: 08/25/2017 09:10 [place] COMPARISON: No previous studies available for comparison. INDICATIONS : Syncope. MEDICAL HISTORY : Hypertension. Thyroid disease. Dyspnea. Hernia. Arthritis. Anxiety. Arthritis. Adenocarcinoma. Si nus infection. SURGICAL HISTORY : Uterine cyst removed. Right small toe calcium removal. ENCOUNTER: Initial ACUITY: 1 day PAIN SCORE: 1/10 LOCATION: Bilateral neck PEAK SYSTOLIC VELOCITIES (cm/sec): ICA/CCA RATIO: Right: 1.5 Left: 1.5 ICA: Right: 124 Left: 143 CCA: Right: 83 Left: 93 ECA: Right: 132 Left: 181 VERTEBRAL: Right: 50 antegrade Left: 74 antegrade Elevated flow velocities and ICA/CCA ratios have been found to correlate with increased degrees of vessel stenosis, calculated as percentage of diameter relative to a normal segment of distal ICA/CCA FINDINGS: RIGHT CAROTID: Moderate calcified plaque with resultant mild, less than 50%, stenosis by holden scale criteria. Wavefo jessica are within normal limits. LEFT CAROTID: Moderate calcified plaque with resultant mild, less than 50%, stenosis by holden scale criteria. Wavefo jessica are within normal limits. VERTEBRAL ARTERIES: Antegrade flow is seen in both vertebral arteries. MISCELLANEOUS: None. CONCLUSION: 1. Moderate carotid calcified plaque with resultant mild, less than 50%, stenosis. 2. Antegrade vertebral artery flow bilaterally. Camden Mackay MD on August 25, 2017 at 9:29 Board Certified Radiologist. This report was verified electronically.
--- NOTE | 2017-08-25 09:55 | ECHRPT ---
Indication: CHF CONCLUSIONS Normal left ventricular size. Mild concentric left ventricular hypertrophy. The left ventricular systolic function is normal with an estimated ejection fraction greater than 65 %. Normal wall motion. Trace aortic valve regurgitation. There is trace tricuspid valve regurgitation. The estimated pulmonary arterial pressure is 55 mmHg. BP: 177 / 78 HR: 57 Rhythm: Sinus MEASUREMENTS (Male / Female) Normal Values Technical Quality:Fair 2D ECHO LV Diastolic Diameter PLAX 4.5 cm 4.2 - 5.9 / 3.9 - 5.3 cm LV Systolic Diameter PLAX 3.2 cm IVS Diastolic Thickness 1.2 cm 0.6 - 1.0 / 0.6 - 0.9 cm LVPW Diastolic Thickness 1.2 cm 0.6 - 1.0 / 0.6 - 0.9 cm LV Relative Wall Thickness 0.5 LVOT Diameter 1.9 cm Aortic Root Diameter 3.1 cm LA Systolic Diameter LX 3.2 cm 3.0 - 4.0 / 2.7 - 3.8 cm M-MODE AV Cusp Separation MM 1.9 cm DOPPLER AV Peak Velocity 176.0 cm/s AV Peak Gradient 12.4 mmHg AV Mean Gradient 7.0 mmHg AV Velocity Time Integral 43.3 cm AI Peak Velocity 414.0 cm/s AI Peak Gradient 68.6 mmHg AI Pressure Half Time 783.0 ms LVOT Peak Velocity 144.0 cm/s LVOT Peak Gradient 8.3 mmHg LVOT Velocity Time Integral 31.9 cm LVOT Cardiac Index 3060.8 cm/minm AV Area Cont Eq vti 2.1 cm AV Area Cont Eq pk 2.3 cm Mitral E Point Velocity 82.7 cm/s Mitral A Point Velocity 79.0 cm/s Mitral E to A Ratio 1.0 LV E' Lateral Velocity 10.5 cm/s Mitral E to LV E' Lateral Ratio 7.9 LV E' Septal Velocity 5.1 cm/s Mitral E to LV E' Septal Ratio 16.3 TR Peak Velocity 352.0 cm/s TR Peak Gradient 49.6 mmHg Right Atrial Pressure 10.0 mmHg Pulmonary Artery Systolic Pressu 59.6 mmHg Right Ventricular Systolic Press 59.6 mmHg PV Peak Velocity 79.0 cm/s PV Peak Gradient 2.5 mmHg FINDINGS LEFT VENTRICLE Normal left ventricular size. Mild concentric left ventricular hypertrophy. The left ventricular systolic function is normal with an estimated ejection fraction greater than 65 %. Normal wall motion. RIGHT VENTRICLE Normal right ventricular size and systolic function. LEFT ATRIUM The left atrial size is normal. RIGHT ATRIUM The right atrial size is normal. ATRIAL SEPTUM Normal atrial septal thickness without atrial level shunting by limited color doppler interrogation. AORTA The aortic root and proximal ascending aorta are normal in size on limited imaging. MITRAL VALVE Structurally normal mitral valve. No mitral valve stenosis or regurgitation. AORTIC VALVE Aortic valve sclerosis is present. Trace aortic valve regurgitation. TRICUSPID VALVE There is trace tricuspid valve regurgitation. The estimated pulmonary arterial pressure is 55 mmHg. PULMONARY VALVE No pulmonary valve regurgitation or stenosis. VESSELS The inferior vena cava is normal in size. PERICARDIUM No pericardial effusion. Marcus Presley MD (Electronically Signed) Final Date:25 August 2017 09:54
[2017-08-25] MEDS: MAGNESIUM OXIDE 400 MG TAB PO SCH (10:56)
[2017-08-25] MEDS: BENZONATATE 100 MG CAP PO PRN (10:56)
[2017-08-25] MEDS: ASPIRIN 81 MG CHEW TAB PO SCH (10:56)
[2017-08-25] MEDS: SODIUM CHLORIDE 0.9% FLUSH 10 ML FLUSH IV FLUSH SCH ×2 (10:56→21:37)
[2017-08-25] MEDS: DOCUSATE SODIUM 50 MG/SENNA 8.6 MG TAB PO SCH ×2 (10:57→21:00)
[2017-08-25] MEDS: VITAMIN E 400 UNIT CAP PO SCH (10:57)
[2017-08-25] MEDS: PRAVASTATIN SOD 40 MG TAB PO SCH (10:57)
[2017-08-25] MEDS: GABAPENTIN 300 MG CAP PO SCH (10:57)
[2017-08-25] MEDS: FUROSEMIDE 40 MG/4 ML VIAL IV PUSH SCH ×2 (10:59→18:21)
--- NOTE | 2017-08-25 15:08 | EKG ---
Date Performed: 08/24/2017 Time Performed: 15:34:08 PTAGE: 82 years EKG: SINUS BRADYCARDIA WITH OCCASIONAL SUPRAVENTRICULAR PREMATURE COMPLEXES NONSPECIFIC T-WAVE A BNORMALITY BORDERLINE ECG PREVIOUS TRACING : 07/24/2013 06.36 DOCTOR: Benito Schneider Interpretating Date/Time 08/25/2017 15:07:20
[2017-08-25] MEDS: ENOXAPARIN SODIUM 40 MG/0.4 ML SYRINGE SQ SCH (18:19)
[2017-08-26] VITALS (8 sets, daily range): BP systolic 122–144; BP diastolic 58–77; PULSE 60–82; RESP 16–18; TEMP 97.5–99.4; O2SAT 91–95
[2017-08-26 05:36] LABS: AUTOMATED NEUTROPHIL # 3.5 TH/MM3 (1.8-7.7); BASOPHIL % 0.3 % (0.0-2.0); EOSINOPHIL % 0.3 % (0.0-4.0); HEMATOCRIT 38.9 % (35.0-46.0); HEMOGLOBIN 13.2 GM/DL (11.6-15.3); LYMPH % 16.5 % (9.0-44.0); LYMPHOCYTE # 0.8 TH/MM3 (1.0-4.8); MEAN CELL VOLUME 96.8 FL (80.0-100.0); MEAN CORPUSCULAR HEMOGLOBIN 32.7 PG (27.0-34.0); MEAN CORPUSCULAR HGB CONC 33.8 % (32.0-36.0); MEAN PLATELET VOLUME 8.4 FL (7.0-11.0); MONO % 14.7 % (0.0-8.0); MONOCYTE # 0.7 TH/MM3 (0-0.9); NEUT % 68.2 % (16.0-70.0); PLATELET COUNT 118 TH/MM3 (150-450); RED BLOOD COUNT 4.02 MIL/MM3 (4.00-5.30); RED CELL DISTRIBUTION WIDTH 12.7 % (11.6-17.2)
[2017-08-26] MEDS: LEVOTHYROXINE SODIUM 100 MCG TAB PO SCH (05:52)
[2017-08-26 05:54] LABS: BICARBONATE 40.1 MEQ/L (21.0-32.0); CALCIUM 8.5 MG/DL (8.5-10.1)
[2017-08-26 05:58] LABS: CREATININE 0.84 MG/DL (0.50-1.00)
--- NOTE | 2017-08-26 08:39 | HHI.PR ---
Subjective Remarks Patient in the chair says she is still sob but feels imprpving wants to go home and not to SNF. Eating but not well. No fever ro chills.No n/v/dc. Objective Vitals Vital Signs Date Time Temp Pulse Resp B/P (MAP) Pulse Ox O2 Delivery O2 Flow Rate FiO2 08/26/17 08:00 97.5 65 18 144/77 (99) 92 08/26/17 04:00 98.2 65 16 130/64 (86) 95 08/26/17 00:00 97.9 82 16 123/59 (80) 94 08/25/17 20:00 98.8 67 18 125/85 (98) 93 08/25/17 20:00 72 08/25/17 19:40 92 Nasal Cannula 3.00 08/25/17 16:00 98.0 80 18 137/88 (104) 97 08/25/17 16:00 98.0 80 18 139/87 (104) 99 08/25/17 11:28 89 Nasal Cannula 2.50 I/O 08/25/17 08/25/17 08/25/17 08/26/17 08/26/17 08/26/17 07:00 15:00 23:00 07:00 15:00 23:00 Intake Total 240 ml 700 ml Output Total 1000 ml 302 ml 800 ml Balance -760 ml 398 ml -800 ml Intake Oral 240 ml 700 ml Output Urine Total 1000 ml 300 ml 800 ml Stool Total 2 ml # Voids 3 6 Result Diagram: 08/26/17 0506 08/26/17 0506 Imaging Last Impressions Carotid Artery Ultrasound 08/25/17 0000 Signed Impressions: Service Date/Time: Friday, August 25, 2017 09:10 - CONCLUSION: 1. Moderate carotid calcified plaque with resultant mild, less than 50%%, stenosis. 2. Antegrade vertebral artery flow bilaterally. Camden Mackay MD Head CT [id number]/24/171426 Signed Impressions: Service Date/Time: Thursday, August 24, 2017 14:58 - CONCLUSION: Normal examination. Jesus Oro MD Chest X-Ray [id number]/24/171426 Signed Impressions: Service Date/Time: Thursday, August 24, 2017 14:36 - CONCLUSION: Increased interstitial markings bilaterally suggestive of pulmonary edema. Brandin Hartman MD Cervical Spine CT 08/24/17 1422 Signed Impressions: Service Date/Time: Thursday, August 24, 2017 14:58 - CONCLUSION: 1. Advanced multilevel degenerative spondylosis with loss of cervical lordosis and mild anterolisthesis of C3 on C4 and C4 and C5. There is also widening of the anterior disc space at C2-5. Suspect findings are degenerative in etiology. Consider flexion-extension views if there is concern regarding ligamentous instability. 2. No acute fracture. Camden Mackay MD Objective Remarks GENERAL: This is a well-nourished, well-developed patient, in no apparent distress. CARDIOVASCULAR: Sinus bradycardia. Without murmurs, gallops, or rubs. RESPIRATORY: Diminished breath sounds throughout. No wheezes, rales, or rhonchi. GASTROINTESTINAL: Abdomen soft, non-tender, nondistended. No guarding. MUSCULOSKELETAL: Extremities without clubbing, cyanosis.. No joint tenderness, effusion, or edema noted. Bilateral lower extremity edema, trace. NEUROLOGICAL: Awake and alert. Cranial nerves II through XII intact. Motor and sensory grossly within normal limits. Five out of 5 muscle strength in all muscle groups. Normal speech. A/P Problem List: (1) Acute exacerbation of CHF (congestive heart failure) ICD Code: I50.9 - Heart failure, unspecified (2) Syncope ICD Code: R55 - Syncope and collapse Status: Acute Assessment and Plan This is an 82-year-old female patient with a known medical history of COPD, hypertension, hyperlipidemia and hypothyroidism who presented to the ED status post syncopal episode, generalized weakness, and cough. Symptomatic bradycardia with generalized weakness, fatigue, and post syncopal episode suspect secondary to beta ronni/bradycardia CT head reviewed showing normal examination. Cervical spine CT reviewed showing multilevel degenerative spondylosis. No acute fracture. EKG showing sinus bradycardia. No ST changes to indicate acute ischemia. Continue cardiac telemetry, monitor for arrhythmias. PT to evaluate and treat. Recommends rehab, patient prefers however PT at home Carotid ultrasound reviewed no significant obstruction. Acute exacerbation of CHF, first episode Patient denies any prior diagnosis of heart failure. CXR reviewed showing increased interstitial markings bilaterally suggestive of pulmonary edema. BNP 659 on presentation. Lasix 40 mg IV given in ED. Placed on Lasix 40 mg IV BID. Change to Po lasix. Give PO lasix and DC IV . Fluid restriction Strict monitoring of intake and output. 2-D ECHO pending Fluid restriction, 1500 ml per day. Supplemental O2 to keep O2 sats >92%. Hypothyroidism: Check TSH. Follow levothyroxine. Hyperlipidemia, chronic: Continue home statin. DVT Prophylaxis: SCDs. Lovenox. DC when imparted poss tomorrow patient wants to go home and not to SNF . DC tomorrow if improves Tia Huitron MD Aug 26, 2017 08:39
[2017-08-26] MEDS: DOCUSATE SODIUM 50 MG/SENNA 8.6 MG TAB PO SCH ×3 (09:00→21:22)
[2017-08-26] MEDS: VITAMIN E 400 UNIT CAP PO SCH (09:38)
[2017-08-26] MEDS: BENZONATATE 100 MG CAP PO PRN (09:38)
[2017-08-26] MEDS: ENALAPRIL MALEATE 10 MG TAB PO SCH (09:38)
[2017-08-26] MEDS: ASPIRIN 81 MG CHEW TAB PO SCH (09:38)
[2017-08-26] MEDS: PRAVASTATIN SOD 40 MG TAB PO SCH (09:38)
[2017-08-26] MEDS: GABAPENTIN 300 MG CAP PO SCH (09:38)
[2017-08-26] MEDS: SODIUM CHLORIDE 0.9% FLUSH 10 ML FLUSH IV FLUSH SCH ×2 (09:39→21:22)
[2017-08-26] MEDS: FUROSEMIDE 40 MG/4 ML VIAL IV PUSH SCH ×2 (09:39→18:05)
[2017-08-26] MEDS: MAGNESIUM OXIDE 400 MG TAB PO SCH (12:44)
[2017-08-26] MEDS: POTASSIUM CHLORIDE 20 MEQ CONTROLLED RELEASE TAB PO SCH ×2 (12:44→21:22)
--- NOTE | 2017-08-26 12:48 | RADRPT ---
EXAM DATE/TIME: 08/26/2017 12:30 [facility] COMPARISON: No previous studies available for comparison. INDICATIONS : Right shoulder pain post fall. Patient has pain when reaching forward, up or abducting arm from torso . MEDICAL HISTORY : Hypertension. Thyroid disease. Dyspnea. Hernia. Arthritis. Anxiety. Arthritis. Adenocarcinoma. Sinus infection. SURGICAL HISTORY : Uterine cyst removed. Right small toe calcium removal. ENCOUNTER: Initial ACUITY: 2 days PAIN SCORE: 7/10 LOCATION: Right shoulder FINDINGS: Multiple view examination of the right shoulder demonstrates no evidence of fracture or dislocation. The glenohumeral and acromioclavicular joints are maintained. There is normal range of motion betwe en internal and external rotation. Bony mineralization is osteopenic. CONCLUSION: No acute fracture or joint dislocation. Brandin Hartman MD on August 26, 2017 at 12:45 Board Certified Radiologist. This report was verified electronically.
[2017-08-26] MEDS: ENOXAPARIN SODIUM 40 MG/0.4 ML SYRINGE SQ SCH (18:06)
[2017-08-26] MEDS: RESP: ALBUTEROL 2.5 MG/IPRATROPIUM 0.5 MG NEB (PRN) NEB (20:54)
--- NOTE | 2017-08-26 23:20 | EKG ---
Date Performed: 08/25/2017 Time Performed: 14:59:22 PTAGE: 82 years EKG: Sinus rhythm NONSPECIFIC T-WAVE ABNORMALITY BORDERLINE ECG PREVIOUS TRACING : 08/24/2017 15.34 Compared to the previous tracing sinus bradycardia is no lo nger present DOCTOR: Bulmaro Nieto Interpretating Date/Time 08/26/2017 23:19:23
[2017-08-27] VITALS (7 sets, daily range): BP systolic 99–184; BP diastolic 58–88; PULSE 62–82; RESP 14–20; TEMP 97.6–99.8; O2SAT 90–93
[2017-08-27] MEDS: BENZONATATE 100 MG CAP PO PRN (02:29)
[2017-08-27] MEDS: LEVOTHYROXINE SODIUM 100 MCG TAB PO SCH (05:28)
[2017-08-27 06:01] LABS: AUTOMATED NEUTROPHIL # 2.3 TH/MM3 (1.8-7.7); BASOPHIL % 0.4 % (0.0-2.0); EOSINOPHIL % 0.4 % (0.0-4.0); HEMATOCRIT 44.2 % (35.0-46.0); LYMPH % 22.9 % (9.0-44.0); LYMPHOCYTE # 0.9 TH/MM3 (1.0-4.8); MEAN CELL VOLUME 98.4 FL (80.0-100.0); MEAN CORPUSCULAR HEMOGLOBIN 31.1 PG (27.0-34.0); MEAN CORPUSCULAR HGB CONC 31.6 % (32.0-36.0); MEAN PLATELET VOLUME 8.4 FL (7.0-11.0); MONO % 17.7 % (0.0-8.0); MONOCYTE # 0.7 TH/MM3 (0-0.9); NEUT % 58.6 % (16.0-70.0); PLATELET COUNT 137 TH/MM3 (150-450); RED BLOOD COUNT 4.49 MIL/MM3 (4.00-5.30); RED CELL DISTRIBUTION WIDTH 12.9 % (11.6-17.2); WHITE BLOOD COUNT 3.9 TH/MM3 (4.0-11.0)
[2017-08-27 06:14] LABS: CALCIUM 8.9 MG/DL (8.5-10.1)
[2017-08-27 06:18] LABS: CREATININE 0.97 MG/DL (0.50-1.00)
--- NOTE | 2017-08-27 08:14 | HHI.PR ---
Subjective Remarks Feels improved today. She still tired, less shortness of breath and lower extremity. Has some loose stool. No nausea or vomiting. Decided to go to rehabilitation Objective Vitals Vital Signs Date Time Temp Pulse Resp B/P (MAP) Pulse Ox O2 Delivery O2 Flow Rate FiO2 08/27/17 08:10 93 Nasal Cannula 3.00 08/27/17 04:00 98.9 62 18 184/76 (112) 92 08/27/17 00:00 98.9 74 16 116/58 (77) 90 08/26/17 20:55 94 Nasal Cannula 3.00 08/26/17 20:00 99.4 64 18 122/58 (79) 92 08/26/17 20:00 70 08/26/17 16:00 97.9 72 16 135/70 (91) 93 08/26/17 12:00 98.4 61 16 139/71 (93) 91 08/26/17 08:20 94 Nasal Cannula 3.00 I/O 08/26/17 08/26/17 08/26/17 08/27/17 08/27/17 08/27/17 07:00 15:00 23:00 07:00 15:00 23:00 Intake Total 960 ml 640 ml Output Total 800 ml 800 ml Balance -800 ml 160 ml 640 ml Intake Oral 960 ml 640 ml Output Urine Total 800 ml 800 ml # Voids 2 # Bowel Movements 1 0 Result Diagram: 08/27/17 0515 08/27/17 0515 Imaging Last Impressions Shoulder X-Ray 08/26/17 0000 Signed Impressions: Service Date/Time: July 12:30 - CONCLUSION: No acute fracture or joint dislocation. Brandin Hartman MD Carotid Artery Ultrasound 08/25/17 0000 Signed Impressions: Service Date/Time: Friday, August 25, 2017 09:10 - CONCLUSION: 1. Moderate carotid calcified plaque with resultant mild, less than 50%%, stenosis. 2. Antegrade vertebral artery flow bilaterally. Camden Mackay MD Head CT [id number]/24/171426 Signed Impressions: Service Date/Time: Thursday, August 24, 2017 14:58 - CONCLUSION: Normal examination. Jesus Oro MD Chest X-Ray 12/26/17 1427 Signed Impressions: Service Date/Time: Thursday, August 24, 2017 14:36 - CONCLUSION: Increased interstitial markings bilaterally suggestive of pulmonary edema. Brandin Hartman MD Cervical Spine CT 08/24/17 1427 Signed Impressions: Service Date/Time: Thursday, August 24, 2017 14:58 - CONCLUSION: 1. Advanced multilevel degenerative spondylosis with loss of cervical lordosis and mild anterolisthesis of C3 on C4 and C4 and C5. There is also widening of the anterior disc space at C2-5. Suspect findings are degenerative in etiology. Consider flexion-extension views if there is concern regarding ligamentous instability. 2. No acute fracture. Camden Mackay MD Objective Remarks GENERAL: This is a well-nourished, well-developed patient, in no apparent distress. CARDIOVASCULAR: Sinus bradycardia. Without murmurs, gallops, or rubs. RESPIRATORY: Diminished breath sounds throughout improved. No wheezes, rales, or rhonchi. GASTROINTESTINAL: Abdomen soft, non-tender, nondistended. No guarding. MUSCULOSKELETAL: Extremities without clubbing, cyanosis. No joint tenderness, effusion, or edema noted. Bilateral lower extremity edema, trace improved. NEUROLOGICAL: Awake and alert. Cranial nerves II through XII intact. Motor and sensory grossly within normal limits. Five out of 5 muscle strength in all muscle groups. Normal speech. A/P Problem List: (1) Acute exacerbation of CHF (congestive heart failure) ICD Code: I50.9 - Heart failure, unspecified (2) Syncope ICD Code: R55 - Syncope and collapse Status: Acute Assessment and Plan This is an 82-year-old female patient with a known medical history of COPD, hypertension, hyperlipidemia and hypothyroidism who presented to the ED status post syncopal episode, generalized weakness, and cough. Symptomatic bradycardia with generalized weakness, fatigue, and post syncopal episode suspect secondary to beta ronni/bradycardia CT head reviewed showing normal examination. Cervical spine CT reviewed showing multilevel degenerative spondylosis. No acute fracture. EKG showing sinus bradycardia. No ST changes to indicate acute ischemia. Continue cardiac telemetry, monitor for arrhythmias. PT to evaluate and treat. Recommends rehab, patient prefers however PT at home Carotid ultrasound reviewed no significant obstruction. Acute exacerbation of CHF, with preserved EF 56% first episode Patient denies any prior diagnosis of heart failure. CXR reviewed showing increased interstitial markings bilaterally suggestive of pulmonary edema. BNP 659 on presentation. Lasix 40 mg IV given in ED. Placed on Lasix 40 mg IV BID. Change to Po lasix. Give PO lasix and DC IV . Fluid restriction Strict monitoring of intake and output. 2-D ECHO EF 65% Fluid restriction, 1500 ml per day. Supplemental O2 to keep O2 sats >92%. Hypothyroidism: Check TSH. Follow levothyroxine. Hyperlipidemia, chronic: Continue home statin. DVT Prophylaxis: SCDs. Lovenox. DC to SNF . Tia Huitron MD Aug 27, 2017 08:14
[2017-08-27] MEDS: VITAMIN E 400 UNIT CAP PO SCH (09:00)
[2017-08-27] MEDS: ENALAPRIL MALEATE 10 MG TAB PO SCH (10:19)
[2017-08-27] MEDS: POTASSIUM CHLORIDE 20 MEQ CONTROLLED RELEASE TAB PO SCH (10:19)
[2017-08-27] MEDS: PRAVASTATIN SOD 40 MG TAB PO SCH (10:19)
[2017-08-27] MEDS: FUROSEMIDE 40 MG/4 ML VIAL IV PUSH SCH ×2 (10:19→17:07)
[2017-08-27] MEDS: GABAPENTIN 300 MG CAP PO SCH (10:19)
[2017-08-27] MEDS: DOCUSATE SODIUM 50 MG/SENNA 8.6 MG TAB PO SCH (10:20)
[2017-08-27] MEDS: SODIUM CHLORIDE 0.9% FLUSH 10 ML FLUSH IV FLUSH SCH (10:20)
[2017-08-27] MEDS: ASPIRIN 81 MG CHEW TAB PO SCH (10:20)
[2017-08-27] MEDS: MAGNESIUM OXIDE 400 MG TAB PO SCH (10:20)
[2017-08-27] MEDS ORDERED: FURO1TAB60 PO (10:54)
--- NOTE | 2017-08-27 10:55 | HHI.DS ---
Discharge Summary Admission Date Aug 24, 2017 at 16:36 Discharge Date: Aug 27, 2017 Admitting Diagnosis Symptomatic bradycardia/CHF (1) Acute exacerbation of CHF (congestive heart failure) ICD Code: I50.9 - Heart failure, unspecified Diagnosis: Principal (2) Syncope ICD Code: R55 - Syncope and collapse Diagnosis: Principal Status: Acute Procedures None Brief History - From Admission Written by Jeannine Mirza, acting as scribe for Dr. Huitron on 08/24/17 at 17:27. Ms. Villalobos is an 82-year-old female patient with a known medical history of hypertension, COPD, hypothyroidism, and arthritis who presented to the ED with complaints of generalized weakness, productive cough and a possible syncopal episode. She states she fell in the shower [place] and felt lightheaded prior , loosing her balance. Does admit to hitting her head. States she blacked out for a couple seconds. Does also complain of shortness of breath and some congestion along with productive cough with white/yellow sputum. Admits to subjective fevers and chills and epigastric pain. Denies any associated nausea, vomiting or diaphoresis. PCP is Dr. Luis. Does not follow with a modeling instructor. States she has poor circulation and bilateral lower extremity edema with plans to see Dr. Wally lindsey [facility], vascular surgeon, later this month. Denies ever having a diagnosis of CHF in the past. At the time of assessment patient is awake and alert and oriented. Denies any chest pain at this time. Breathing comfortably on 2 L NC. CBC/BMP: 08/27/17 0515 08/27/17 0515 Significant Findings Laboratory Tests Test 08/24/17 14:39 08/25/17 05:10 08/26/17 05:06 08/27/17 05:15 Red Blood Count 3.87 MIL/MM3 (4.00-5.30) 3.79 MIL/MM3 (4.00-5.30) Platelet Count 107 TH/MM3 (150-450) 76 TH/MM3 (150-450) 118 TH/MM3 (150-450) 137 TH/MM3 (150-450) Monocytes (%) (Auto) 14.8 % (0.0-8.0) 13.7 % (0.0-8.0) 14.7 % (0.0-8.0) 17.7 % (0.0-8.0) Basophils (%) (Auto) 2.7 % (0.0-2.0) Lymphocytes # (Auto) 0.9 TH/MM3 (1.0-4.8) 0.9 TH/MM3 (1.0-4.8) 0.8 TH/MM3 (1.0-4.8) 0.9 TH/MM3 (1.0-4.8) Monocytes # (Auto) 1.0 TH/MM3 (0-0.9) Activated Partial Thromboplast Time 24.0 SEC (24.3-30.1) Blood Urea Nitrogen 34 MG/DL (7-18) 29 MG/DL (7-18) 28 MG/DL (7-18) 32 MG/DL (7-18) Random Glucose 117 MG/DL (74-106) Albumin 3.2 GM/DL (3.4-5.0) Calcium Level 8.0 MG/DL (8.5-10.1) 8.4 MG/DL (8.5-10.1) Aspartate Amino Transf (AST/SGOT) 59 U/L (15-37) Anion Gap 4 MEQ/L (5-15) 3 MEQ/L (5-15) 0 MEQ/L (5-15) Estimat Glomerular Filtration Rate 60 ML/MIN (>89) 58 ML/MIN (>89) 65 ML/MIN (>89) 55 ML/MIN (>89) Total Creatine Kinase 249 U/L (26-192) B-Type Natriuretic Peptide 659 PG/ML (0-100) 239 PG/ML (0-100) Neutrophils (%) (Auto) 70.1 % (16.0-70.0) Carbon Dioxide Level 34.3 MEQ/L (21.0-32.0) 40.1 MEQ/L (21.0-32.0) 44.0 MEQ/L (21.0-32.0) Troponin I LESS THAN 0.02 NG/ML Chloride Level 95 MEQ/L (98-107) 95 MEQ/L (98-107) White Blood Count 3.9 TH/MM3 (4.0-11.0) Mean Corpuscular Hemoglobin Concent 31.6 % (32.0-36.0) Imaging Last Impressions Shoulder X-Ray 08/26/17 0000 Signed Impressions: Service Date/Time: July 12:30 - CONCLUSION: No acute fracture or joint dislocation. Brandin Hartman MD Carotid Artery Ultrasound 08/25/17 0000 Signed Impressions: Service Date/Time: Friday, August 25, 2017 09:10 - CONCLUSION: 1. Moderate carotid calcified plaque with resultant mild, less than 50%%, stenosis. 2. Antegrade vertebral artery flow bilaterally. Camden Mackay MD Head CT [id number]/24/171426 Signed Impressions: Service Date/Time: Thursday, August 24, 2017 14:58 - CONCLUSION: Normal examination. Jesus Oro MD Chest X-Ray [id number]/24/171426 Signed Impressions: Service Date/Time: Thursday, August 24, 2017 14:36 - CONCLUSION: Increased interstitial markings bilaterally suggestive of pulmonary edema. Brandin Hartman MD Cervical Spine CT [id number]/24/171426 Signed Impressions: Service Date/Time: Thursday, August 24, 2017 14:58 - CONCLUSION: 1. Advanced multilevel degenerative spondylosis with loss of cervical lordosis and mild anterolisthesis of C3 on C4 and C4 and C5. There is also widening of the anterior disc space at C2-5. Suspect findings are degenerative in etiology. Consider flexion-extension views if there is concern regarding ligamentous instability. 2. No acute fracture. Camden Mackay MD PE at Discharge GENERAL: This is a well-nourished, well-developed patient, in no apparent distress. CARDIOVASCULAR: Sinus bradycardia. Without murmurs, gallops, or rubs. RESPIRATORY: Diminished breath sounds throughout. No wheezes, rales, or rhonchi. GASTROINTESTINAL: Abdomen soft, non-tender, nondistended. No guarding. MUSCULOSKELETAL: Extremities without clubbing, cyanosis.. No joint tenderness, effusion, or edema noted. Bilateral lower extremity edema, trace. NEUROLOGICAL: Awake and alert. Cranial nerves II through XII intact. Motor and sensory grossly within normal limits. Five out of 5 muscle strength in all muscle groups. Normal speech. Hospital Course This is an 82-year-old female patient with a known medical history of COPD, hypertension, hyperlipidemia and hypothyroidism who presented to the ED status post syncopal episode, generalized weakness, and cough. With Symptomatic bradycardia with generalized weakness, fatigue, and post syncopal episode suspect secondary to beta ronni/bradycardia CT head reviewed showing normal examination. Cervical spine CT reviewed showing multilevel degenerative spondylosis. No acute fracture. EKG showing sinus bradycardia. No ST changes to indicate acute ischemia. Continue cardiac telemetry, monitor for arrhythmias. PT to evaluate and treat. Recommends rehab Carotid ultrasound reviewed no significant obstruction. With Acute exacerbation of CHF, with preserved EF 56% first episode. Patient denies any prior diagnosis of heart failure. CXR reviewed showing increased interstitial markings bilaterally suggestive of pulmonary edema. BNP 659 on presentation improved with diuresis Lasix 40 mg IV given in ED. Placed on Lasix 40 mg IV BID. Change to Po lasix. Give PO lasix and DC IV . Fluid restriction Strict monitoring of intake and output. 2-D ECHO EF 65% Fluid restriction Supplemental O2 to keep O2 sats >92%. The patient improved. Is discharged to the nursing facility in stable condition to follow-up as outpatient with PCP and consultants Pt Condition on Discharge: Stable Discharge Disposition: Disch w/ Home Health Serv Discharge Time: > 30 minutes Discharge Instructions DIET: Follow Instructions for: Heart Healthy Diet Activities you can perform: Regular-No Restrictions Follow up Referrals: PCP Follow-up - 2-3 Days SNF/[facility]/ with [facility] New Medications: Furosemide (Lasix) 40 Mg Tab 40 MG PO DAILY for chf, #30 TAB 0 Refills Continued Medications: Amlodipine (Amlodipine) 2.5 Mg Tab 2.5 MG PO DAILY for Blood Pressure Management, #30 TAB 0 Refills Aspirin (Aspirin) 325 Mg Tab 81 MG PO DAILY, #30 TAB 0 Refills Pekalwdxw-Prrodeyroig-Rzgnvvu (Osteo Bi-Flex One A Day) 1 Tab 1 TAB PO DAILY, TAB Coenzyme Q10 (Ubidecarenone) (Coq10) 50 Mg Cap 1 CAP PO DAILY Enalapril (Enalapril) 20 Mg Tab 20 MG PO DAILY, #30 TAB 0 Refills Fish Oil-Cholecalciferol ([place]-3 Fish Oil/Vitamin) 1,000-1,000 Mg Cap 1 CAP PO DAILY for Nutritional Supplement, CAP 0 Refills Gabapentin (Gabapentin) 600 Mg Tab 600 MG PO DAILY, #60 TAB 0 Refills Levothyroxine (Levothyroxine) 100 Mcg Tab 100 MCG PO DAILY for Thyroid, #30 TAB 0 Refills Lovastatin (Lovastatin) 40 Mg Tab 40 MG PO DAILY for Cholesterol Management, #30 TAB 0 Refills Magnesium Oxide (Magnesium Oxide) 500 Mg Tab 500 MG PO DAILY, TAB 0 Refills Propranolol (Propranolol) 20 Mg Tab 20 MG PO DAILY, #60 TAB 0 Refills Vitamin E (Vitamin E) 200 Unit Cap 200 UNITS PO DAILY for Nutritional Supplement, CAP 0 Refills Zinc Sulfate (Zinc Sulfate) 220 Mg Cap 220 MG PO DAILY for Nutritional Supplement, CAP 0 Refills Tia Huitron MD Aug 27, 2017 10:55
--- NOTE | 2017-08-27 11:08 | HHI.FF ---
Face to Face Verification Diagnosis: (1) Acute exacerbation of CHF (congestive heart failure) (2) Symptomatic bradycardia Physical Therapy Order: Evaluate and Treat Occupational Therapy Order: Evaluate and Treat Home Health Nursing Order: Medical education Signs/symptoms of disease process CHF education Medication education-adverse effect Nursing assessment with vital signs Principal Network Engineer Order: To Evaluate: Living conditions/environment, Support services I have seen patient Domi Villalobos on 08/27/17. My clinical findings support the need for the requested home health care services because: Ltd mobility - disease progression I certify that my clinical findings support that this patient is homebound because: Post-op weakness Tia Huitron MD Aug 27, 2017 11:08
[2017-08-27] MEDS: RESP: ALBUTEROL 2.5 MG/IPRATROPIUM 0.5 MG NEB (PRN) NEB (14:11)
[2017-08-27] MEDS: ENOXAPARIN SODIUM 40 MG/0.4 ML SYRINGE SQ SCH (17:08)
== END 2017-08-27 19:00 | DRG 308 ==
LOC: PHED 14:10 → PHEDA 16:36 → PH3B 17:22
PROVIDERS: ADMIT Hospitalist; ATTEND Hospitalist
DX: R00.1 Bradycardia, unspecified (principal); I50.31 Acute diastolic (congestive) heart failure; I11.0 Hypertensive heart disease with heart failure; J44.9 Chronic obstructive pulmonary disease, unspecified; M19.90 Unspecified osteoarthritis, unspecified site; T44.7X5A Adverse effect of beta-adrenoreceptor antagonists, initial encounter; E03.9 Hypothyroidism, unspecified; E78.5 Hyperlipidemia, unspecified; R55 Syncope and collapse; M47.9 Spondylosis, unspecified; Z87.891 Personal history of nicotine dependence
CPT/HCPCS: 70450; 71010; 72125; 73030; 80048; 80053; 82550; 82552; 83735; 83880; 84443; 84484; 85025; 85610; 85730; 93005; 93306; 93880; 94150; 94640; 94664; 99285; J1650; J1940